=== PATIENT | female | born 1970 | race Caucasian/White ===

== ENCOUNTER 2016-11-30 19:39 | Emergency (ER) | payer OTHER ==
[~2016-11-30] VITALS: Ht 160 cm; Wt 79.2 kg
[~2016-11-30 19:39] MED LIST: ADVAIR 100/501 DISK IH; ALBUTEROL17 GM IH; BUTALB-APAP-CA1 EACH PO; CLINDAMYCIN HC300 MG PO; ENDOCET 5-3251 EACH PO; HYDROCODON-ACE1 EAC2; HYDROCODON-ACE1 EAC7 PO; IBUPROFEN600 MG; KEFLEX500 MG PO; Levaquin PO; MOTRIN800 MG PO; Medrol Dosepak PO; NAPROXEN500 MG PO; PEN-VEE K,VEET500 MG PO; PERCOCET 5/31 TABLET PO; PREDNISONE50 MG PO; PROZAC20 MG PO; Proventil,Ventolin H IH; TOPIRAMATE200 MG PO; VICODIN 5-5001 EACH PO; XANAX0.5 MG PO; ZOFRAN4 MG PO
[2016-11-30 20:21] LABS: HEMATOCRIT 38.4 % (36.0-46.0); MCHC 32.6 G/DL (30.0-36.0); MCV 86.1 FL (83-99); MEAN PLAT.VOLUME 9.6 uM^3 (9.5-12.4); PLATELET COUNT 307 K/uL (156-360); RBC DIS.WIDTH-CV 13.4 % (11.8-14.6); RBC DIS.WIDTH-SD 42.4 % (39-53); RED BLOOD COUNT 4.46 M/uL (3.80-5.20); WHITE BLOOD COUNT 10.7 K/uL (4.1-10.2)
[2016-11-30 20:34] LABS: CHLORIDE 105 mEq/L (99-109); POTASSIUM 3.3 mEq/L (3.7-5.4); SODIUM 140 mEq/L (136-147)
[2016-11-30 20:36] LABS: GLUCOSE 84 mg/dL (70-99)
[2016-11-30 20:37] LABS: ANION GAP 8 MEQ/L (2-14)
[2016-11-30 20:40] LABS: GFR ESTIMATE (CALCULATED) > 59 mL/min/
[2016-11-30 20:44] LABS: TROP-I INTERPRETATION NEGATIVE; TROPONIN-I < 0.01 ng/mL (0.0-0.30)
[2016-11-30 21:04] LABS: UREA NITROGEN (BUN) 11 mg/dL (9-23)
[2016-11-30 23:38] LABS: ADD MIUA? NO; BILIRUBIN NEGATIVE; BLOOD NEGATIVE; COLOR YELLOW ((YELLOW)); GLUCOSE (STRIP) NEGATIVE; KETONES 5; LEUKOCYTES NEGATIVE; NITRITE NEGATIVE; PROTEIN (STRIP) NEGATIVE; SPECIFIC GRAVITY 1.018 (1.000-1.030); UROBILINOGEN 0.2 MG/DL (0.2-1.0)
[2016-11-30] MEDS ORDERED: FIORICET 50-301 EACH PO (23:50)
[2016-11-30] MEDS ORDERED: ZOFRAN ODT8 MG PO (23:50)
[2016-12-01 00:15] VITALS: BP 149/80
== END 2016-12-01 00:18 | disposition home or self-care (01) ==
LOC: EME 19:39 → RME 19:39
PROVIDERS: Physician Assistant
DX: R51 Headache (principal); R07.9 Chest pain, unspecified; I10 Essential (primary) hypertension; Z87.891 Personal history of nicotine dependence; Z87.442 Personal history of urinary calculi
CPT/HCPCS: 71020; 80048; 81003; 84484; 85027; 93005; 99281; 99285; J1885; J2765; J7030

== ENCOUNTER 2017-02-15 11:14 | Emergency (ER) | payer OTHER ==
[~2017-02-15] VITALS: Ht 162.6 cm; Wt 78.9 kg
[~2017-02-15 11:14] MED LIST changes: +FIORICET 50-301 EACH PO; +ZOFRAN ODT8 MG PO
[2017-02-15 12:03] LABS: ADD MIUA? YES; BILIRUBIN NEGATIVE; BLOOD NEGATIVE; COLOR AMBER ((YELLOW)); GLUCOSE (STRIP) NEGATIVE; KETONES 5; LEUKOCYTES SMALL; NITRITE NEGATIVE; PROTEIN (STRIP) NEGATIVE; SPECIFIC GRAVITY 1.029 (1.000-1.030)
[2017-02-15 12:26] LABS: RED BLOOD CELLS NONE SEEN /HPF (0-5); WHITE BLOOD CELLS RARE /HPF (0-5)
[2017-02-15 12:27] LABS: EPITHELIAL CELLS 1+ /HPF; MUCUS 3+ /LPF
[2017-02-15 12:28] LABS: BACTERIA RARE /HPF; UCUL ADDED? NO
[2017-02-15] MEDS ORDERED: PAXIL20 MG PO (13:26)
[2017-02-15 13:31] LABS: MCH 27.8 PG (29.0-34.0); MCHC 32.4 G/DL (30.0-36.0); MCV 85.8 FL (83-99); MEAN PLAT.VOLUME 9.2 uM^3 (9.5-12.4); PLATELET COUNT 310 K/uL (156-360); RBC DIS.WIDTH-CV 12.6 % (11.8-14.6); RBC DIS.WIDTH-SD 39.4 % (39-53); RED BLOOD COUNT 4.78 M/uL (3.80-5.20); WHITE BLOOD COUNT 14.4 K/uL (4.1-10.2)
[2017-02-15 13:40] LABS: CHLORIDE 102 mEq/L (99-109); POTASSIUM 3.4 mEq/L (3.7-5.4); SODIUM 140 mEq/L (136-147)
[2017-02-15 13:42] LABS: GLUCOSE 94 mg/dL (70-99)
[2017-02-15 13:43] LABS: ANION GAP 12 MEQ/L (2-14)
[2017-02-15 13:46] LABS: GFR ESTIMATE (CALCULATED) > 59 mL/min/; UREA NITROGEN (BUN) 10 mg/dL (9-23)
[2017-02-15 13:54] LABS: QUANTITATIVE HCG < 4.0 MIU/ML
[2017-02-15] MEDS ORDERED: PERCOCET 5/31 TABLET PO (15:19)
[2017-02-15] MEDS ORDERED: ZOFRAN ODT4 MG PO (15:19)
[2017-02-15 15:31] VITALS: BP 128/77
== END 2017-02-15 15:31 | disposition home or self-care (01) ==
LOC: EME 11:14
PROVIDERS: Physician Assistant
DX: R10.30 Lower abdominal pain, unspecified (principal); Z87.440 Personal history of urinary (tract) infections; Z87.442 Personal history of urinary calculi; J45.909 Unspecified asthma, uncomplicated; F32.9 Major depressive disorder, single episode, unspecified; F41.9 Anxiety disorder, unspecified; Z87.891 Personal history of nicotine dependence; Z88.8 Allergy status to other drugs, medicaments and biological substances
CPT/HCPCS: 74176; 80048; 81003; 84702; 85027; 99281; 99284; J1885; J3010

== ENCOUNTER 2017-03-15 11:43 | Emergency (ER) | payer OTHER ==
[~2017-03-15] VITALS: Ht 162.6 cm; Wt 80.4 kg
[~2017-03-15 11:43] MED LIST changes: +PAXIL20 MG PO; +ZOFRAN ODT4 MG PO
[2017-03-15] MEDS ORDERED: GABAPENTIN300 MG PO (12:29)
[2017-03-15] MEDS ORDERED: VENTOLIN HFA18 GM IH (12:30)
[2017-03-15] MEDS ORDERED: ESTRADIOL2 MG PO (12:30)
[2017-03-15] MEDS ORDERED: ZOFRAN ODT4 MG PO (15:07)
[2017-03-15] MEDS ORDERED: AFRIN,GENASAL D15 ML BOTH NARES (15:07)
[2017-03-15] MEDS ORDERED: BENADRYL50 MG PO (15:07)
[2017-03-15] MEDS ORDERED: MOTRIN800 MG PO (15:07)
[2017-03-15 15:46] VITALS: BP 115/60
== END 2017-03-15 15:47 | disposition home or self-care (01) ==
LOC: EME 11:43
DX: R51 Headache (principal); J32.2 Chronic ethmoidal sinusitis; R42 Dizziness and giddiness; R11.0 Nausea; J45.909 Unspecified asthma, uncomplicated; Z87.891 Personal history of nicotine dependence
CPT/HCPCS: 70450; 99281; 99284; J1100; J1885; J3010

== ENCOUNTER 2017-07-10 22:53 | Emergency (ER) | payer OTHER ==
[~2017-07-10] VITALS: Ht 162.6 cm; Wt 81.6 kg
[~2017-07-10 22:53] MED LIST changes: +AFRIN,GENASAL D15 ML BOTH NARES; +BENADRYL50 MG PO; +ESTRADIOL2 MG PO; +GABAPENTIN300 MG PO; +VENTOLIN HFA18 GM IH
[2017-07-11] MEDS ORDERED: LEVAQUIN750 MG PO (01:32)
[2017-07-11 01:34] LABS: HEMATOCRIT 40.6 % (36.0-46.0); HEMOGLOBIN 13.3 G/DL (11.9-15.5); MCH 27.8 PG (29.0-34.0); MCHC 32.8 G/DL (30.0-36.0); MCV 84.9 FL (83-99); PLATELET COUNT 302 K/uL (156-360); RBC DIS.WIDTH-CV 13.2 % (11.8-14.6); RED BLOOD COUNT 4.78 M/uL (3.80-5.20); WHITE BLOOD COUNT 12.7 K/uL (4.1-10.2)
[2017-07-11 01:44] VITALS: BP 133/104
[2017-07-11 01:50] LABS: ALBUMIN 3.7 g/dL (3.2-4.8)
[2017-07-11 01:51] LABS: CHLORIDE 105 mEq/L (99-109); POTASSIUM 4.1 mEq/L (3.7-5.4); SODIUM 140 mEq/L (136-147)
[2017-07-11 01:53] LABS: GLUCOSE 110 mg/dL (70-99); TOTAL PROTEIN 6.6 g/dL (6.4-8.3)
[2017-07-11 01:55] LABS: TOTAL BILIRUBIN 0.2 mg/dL (0.0-1.0)
[2017-07-11 01:56] LABS: ALKALINE PHOSPHATASE 91 IU/L (3-129)
[2017-07-11 01:57] LABS: CREATININE 0.7 mg/dL (0.6-1.3); GFR ESTIMATE (CALCULATED) > 59 mL/min/
[2017-07-11 01:58] LABS: AST (GOT) 14 IU/L (2-34); UREA NITROGEN (BUN) 5 mg/dL (9-23)
[2017-07-11 01:59] LABS: ALT (GPT) 14 IU/L (3-49)
== END 2017-07-11 01:46 | disposition home or self-care (01) ==
LOC: EME 22:53
PROVIDERS: Physician Assistant
DX: J18.9 Pneumonia, unspecified organism (principal); J45.909 Unspecified asthma, uncomplicated; F41.9 Anxiety disorder, unspecified; F32.9 Major depressive disorder, single episode, unspecified; Z87.891 Personal history of nicotine dependence; Z87.442 Personal history of urinary calculi; Z87.440 Personal history of urinary (tract) infections; Z90.710 Acquired absence of both cervix and uterus; Z88.8 Allergy status to other drugs, medicaments and biological substances
CPT/HCPCS: 71046; 80053; 85027; 87502; 99281; 99284

== ENCOUNTER 2017-07-12 19:52 | Emergency (ER) | payer OTHER ==
[~2017-07-12] VITALS: Ht 162.6 cm; Wt 81.9 kg
[~2017-07-12 19:52] MED LIST changes: +LEVAQUIN750 MG PO
[2017-07-12 20:45] LABS: HEMATOCRIT 39.3 % (36.0-46.0); HEMOGLOBIN 13.1 G/DL (11.9-15.5); MCH 27.8 PG (29.0-34.0); MCHC 33.3 G/DL (30.0-36.0); MCV 83.4 FL (83-99); PLATELET COUNT 323 K/uL (156-360); RBC DIS.WIDTH-CV 12.8 % (11.8-14.6); RBC DIS.WIDTH-SD 39.2 % (39-53); RED BLOOD COUNT 4.71 M/uL (3.80-5.20); WHITE BLOOD COUNT 7.7 K/uL (4.1-10.2)
[2017-07-12 20:55] LABS: CHLORIDE 107 mEq/L (99-109); POTASSIUM 3.9 mEq/L (3.7-5.4); SODIUM 142 mEq/L (136-147)
[2017-07-12 20:56] LABS: GLUCOSE 108 mg/dL (70-99)
[2017-07-12 21:00] LABS: CREATININE 0.7 mg/dL (0.6-1.3); GFR ESTIMATE (CALCULATED) > 59 mL/min/
[2017-07-12 21:01] LABS: UREA NITROGEN (BUN) 8 mg/dL (9-23)
[2017-07-12 23:47] VITALS: BP 129/80
== END 2017-07-13 00:11 | disposition home or self-care (01) ==
LOC: EME 19:52
DX: J18.9 Pneumonia, unspecified organism (principal); R42 Dizziness and giddiness; J45.909 Unspecified asthma, uncomplicated; G43.909 Migraine, unspecified, not intractable, without status migrainosus; F41.9 Anxiety disorder, unspecified; F32.9 Major depressive disorder, single episode, unspecified; Z87.891 Personal history of nicotine dependence; Z87.442 Personal history of urinary calculi; Z87.440 Personal history of urinary (tract) infections; Z90.710 Acquired absence of both cervix and uterus; Z88.8 Allergy status to other drugs, medicaments and biological substances
CPT/HCPCS: 70450; 71046; 80048; 85027; 99281; 99285; J7030

== ENCOUNTER 2017-07-20 15:50 | Emergency (ER) | payer OTHER ==
[~2017-07-20] VITALS: Ht 162.6 cm; Wt 80.9 kg
[2017-07-20 16:47] LABS: HEMATOCRIT 41.1 % (36.0-46.0); HEMOGLOBIN 13.9 G/DL (11.9-15.5); MCH 28.5 PG (29.0-34.0); MCHC 33.8 G/DL (30.0-36.0); MCV 84.2 FL (83-99); PLATELET COUNT 372 K/uL (156-360); RBC DIS.WIDTH-CV 13.1 % (11.8-14.6); RBC DIS.WIDTH-SD 40.3 % (39-53); RED BLOOD COUNT 4.88 M/uL (3.80-5.20); WHITE BLOOD COUNT 18.6 K/uL (4.1-10.2)
[2017-07-20 16:57] LABS: CHLORIDE 103 mEq/L (99-109); POTASSIUM 4.8 mEq/L (3.7-5.4); SODIUM 139 mEq/L (136-147)
[2017-07-20 16:59] LABS: GLUCOSE 149 mg/dL (70-99)
[2017-07-20 17:03] LABS: CREATININE 0.9 mg/dL (0.6-1.3); GFR ESTIMATE (CALCULATED) > 59 mL/min/
[2017-07-20 17:04] LABS: UREA NITROGEN (BUN) 11 mg/dL (9-23)
[2017-07-20 18:21] LABS: ALBUMIN 4.1 g/dL (3.2-4.8)
[2017-07-20 18:24] LABS: TOTAL PROTEIN 7.2 g/dL (6.4-8.3)
[2017-07-20 18:26] LABS: TOTAL BILIRUBIN 0.2 mg/dL (0.0-1.0)
[2017-07-20 18:27] LABS: ALKALINE PHOSPHATASE 74 IU/L (3-129)
[2017-07-20 18:29] LABS: AST (GOT) 11 IU/L (2-34)
[2017-07-20 18:30] LABS: ALT (GPT) 14 IU/L (3-49); LIPASE 8 U/L (1.0-51.0)
[2017-07-20 18:53] LABS: TROP-I INTERPRETATION NEGATIVE; TROPONIN-I < 0.01 ng/mL (0.0-0.30)
[2017-07-20 19:33] LABS: APPEARANCE CLEAR ((CLEAR)); BILIRUBIN NEGATIVE; BLOOD NEGATIVE; COLOR YELLOW ((YELLOW)); GLUCOSE (STRIP) NEGATIVE; KETONES 5; LEUKOCYTES NEGATIVE; NITRITE NEGATIVE; PROTEIN (STRIP) 30; SPECIFIC GRAVITY 1.026 (1.000-1.030); UCUL ADDED? NO; UROBILINOGEN 0.2 MG/DL (0.2-1.0)
[2017-07-20 21:22] VITALS: BP 120/78
== END 2017-07-20 21:27 | disposition home or self-care (01) ==
LOC: EME 15:50
PROVIDERS: Emergency Medicine
DX: R06.02 Shortness of breath (principal); J45.909 Unspecified asthma, uncomplicated; F32.9 Major depressive disorder, single episode, unspecified; F41.9 Anxiety disorder, unspecified; Z87.891 Personal history of nicotine dependence; Z87.442 Personal history of urinary calculi; Z87.440 Personal history of urinary (tract) infections; Z90.710 Acquired absence of both cervix and uterus; Z88.8 Allergy status to other drugs, medicaments and biological substances
CPT/HCPCS: 71046; 71275; 80048; 80053; 81003; 83690; 84484; 85027; 93005; 99281; 99284